=== PATIENT | male | born 1985 | race African-American/Black ===

== ENCOUNTER 2023-04-04 09:32 | Inpatient (IN) | payer OTHER ==
[~2023-04-04] VITALS: Ht 180.3 cm; Wt 113.4 kg
[2023-04-04] VITALS (34 sets, daily range): BP systolic 134–200; BP diastolic 86–151; PULSE 86–106; RESP 18–40; TEMP 97.7–98.5; O2SAT 96
[2023-04-04 09:58] LABS: BASOPHILS % 0.8 % (0.0-2.0); EOSINOPHILS % 1.4 % (0.0-5.0); HEMATOCRIT. 35.2 % (42.0-52.0); HEMOGLOBIN. 11.6 g/dL (14.0-18.0); LYMPHOCYTES % 20.6 % (20.0-50.0); MEAN CORPUSCULAR HGB CONC 32.9 g/dL (31.0-37.0); MEAN CORPUSCULAR VOLUME 85.1 fL (80.0-94.0); MEAN PLATELET VOLUME 7.4 fl (7.4-10.4); MONOCYTES % 6.6 % (2.0-8.0); NEUTROPHILS % 70.6 % (40.0-76.0); PLATELET 323 x1000/uL (130-400); RED BLOOD CELL COUNT 4.14 mill/uL (4.7-6.1); RED CELL DISTRIBUTION WIDTH 20.5 % (11.6-14.6); WHITE BLOOD COUNT 11.1 x1000/uL (4.5-11.0)
[2023-04-04 10:07] LABS: CHLORIDE 112 mEq/L (98-107); INDEX HEMOLYSI 1 (1-3); INDEX ICTERIC 1 (1-4); INDEX LIPEMIC 1 (1-3); POTASSIUM 3.7 mEq/L (3.5-5.1); SODIUM 141 mEq/L (136-145)
[2023-04-04 10:27] LABS: ALANINE AMINOTRANSFERASE 45 IU/L (13-61); ALBUMIN 3.1 g/dL (3.4-5.0); ASPARTATE AMINOTRANSFERASE 24 IU/L (15-37); BILIRUBIN TOTAL 1.4 mg/dL (0.1-1.0); CARBON DIOXIDE 20 mEq/L (21-32); CREATININE 1.1 mg/dL (0.6-1.3); GLUCOSE 111 mg/dL (70-105); NT PRO B-TYPE NATRIURETIC PEP 13787 pg/mL (5-125); PROTEIN TOTAL 7.2 g/dL (6.0-8.3); UREA NITROGEN BLOOD 19 mg/dL (7-21)
[2023-04-04] MEDS ORDERED: HYDRALAZINE 20MG/ML VIAL IV ONE (10:45)
[2023-04-04 10:52] LABS: TROPONIN I HIGH SENSITIVITY 108 ng/L (<78)
[2023-04-04] MEDS ORDERED: ENOXAPARIN 80MG/0.8ML SYR SUBCUT ONE (11:00)
[2023-04-04] MEDS ORDERED: NITROGLYCERIN 50MG PREMIX 250 ML IV ONE (13:15)
[2023-04-04] MEDS: NITROGLYCERIN 50 MG PREMIX 250 ML IV PRN (13:25)
[2023-04-04] MEDS ORDERED: FUROSEMIDE 40MG/4ML VIAL IVP NR (13:30)
[2023-04-04] MEDS: AMLODIPINE 5MG TABLET PO SCH (13:49)
[2023-04-04] MEDS: CARVEDILOL 12.5MG TABLET PO SCH ×2 (13:58→20:51)
[2023-04-04] MEDS: SPIRONOLACTONE 25MG TABLET PO SCH (14:01)
[2023-04-04] MEDS: METHYLPREDNISOLONE SOD SUCC 40MG/ML (ACT-O-VIAL) IV SCH ×2 (14:06→20:51)
[2023-04-04] MEDS ORDERED: ONDANSETRON HCL 4MG/2ML INJ IV PRN (15:30)
[2023-04-04] MEDS ORDERED: IPRATROPIUM/ALBUTEROL 0.5-3(2.5)MG/3ML NEB HHN PRN (15:30)
[2023-04-04 15:50] LABS: BG BASE EXCESS -1.8 mmol/L (-2.0-2.0); BG CARBOXYHEMOGLOBIN 1.5 % (0.5-1.5); BG DEOXYHEMOGLOBIN 6.2 % (0.0-5.0); BG FRACTION INSPIRED OXYGEN 32; BG HCO3 ACT 21.2 mmol/L (22.0-26.0); BG METHEMOGLOBIN 0.2 % (0.0-1.5); BG OXYGEN SATURATION 93.7 % (92.0-98.5); BG OXYHEMOGLOBIN 92.1 % (94.0-97.0); BG PCO2 31.1 mmHg (35.0-45.0); BG PH 7.451 (7.350-7.450); BG PO2 71.1 mmHg (75.0-100.0); BG SAMPLE SITE LEFT BRACHIAL; BG TOTAL HEMOGLOBIN 13.7 g/dL (12.0-18.0); BG VENT MODE NASAL CANNULA
[2023-04-04] MEDS ORDERED: DEXTROSE 50% WATER 50ML SYRINGE IV PRN (19:15)
[2023-04-04] MEDS: ACETAMINOPHEN 325MG TABLET PO PRN (20:50)
[2023-04-04] MEDS: INSULIN LISPRO (LOW DOSE) 100 UNITS/ML SUBCUT SCH (21:00)
[2023-04-04] MEDS: BLOOD SUGAR DIAGNOSTIC STRIP TEST SCH (21:00)
[2023-04-04] MEDS: ENOXAPARIN 30MG/0.3ML SYR SUBCUT SCH (22:08)
[2023-04-04 23:41] LABS: CREATINE KINASE MB FRACTION 2.7 ng/mL (0.5-3.6)
[2023-04-05] VITALS (82 sets, daily range): BP systolic 118–186; BP diastolic 65–128; PULSE 70–116; RESP 11–43; TEMP 97.9–98.1
[2023-04-05] MEDS: MIRTAZAPINE 15MG TABLET PO SCH ×2 (00:36→20:10)
[2023-04-05] MEDS: NITROGLYCERIN 50 MG PREMIX 250 ML IV PRN ×4 (00:41→18:05)
[2023-04-05 06:02] LABS: CREATINE KINASE MB FRACTION 2.6 ng/mL (0.5-3.6)
[2023-04-05] MEDS: BLOOD SUGAR DIAGNOSTIC STRIP TEST SCH ×4 (07:50→21:00)
[2023-04-05] MEDS: INSULIN LISPRO (LOW DOSE) 100 UNITS/ML SUBCUT SCH ×4 (08:20→21:00)
[2023-04-05] MEDS: AMLODIPINE 5MG TABLET PO SCH (08:31)
[2023-04-05] MEDS: SPIRONOLACTONE 25MG TABLET PO SCH (08:31)
[2023-04-05] MEDS: METHYLPREDNISOLONE SOD SUCC 40MG/ML (ACT-O-VIAL) IV SCH ×2 (08:31→17:00)
[2023-04-05] MEDS: CARVEDILOL 12.5MG TABLET PO SCH ×2 (08:32→20:10)
[2023-04-05] MEDS: ENOXAPARIN 30MG/0.3ML SYR SUBCUT SCH ×2 (08:32→20:11)
[2023-04-05] MEDS ORDERED: HYDRALAZINE 20MG/ML VIAL IV PRN (11:15)
[2023-04-05 12:17] LABS: HEMATOCRIT. 33.3 % (42.0-52.0); HEMOGLOBIN. 10.9 g/dL (14.0-18.0); MEAN CORPUSCULAR HEMOGLOBIN 27.3 pg (28.0-32.0); MEAN CORPUSCULAR HGB CONC 32.6 g/dL (31.0-37.0); MEAN CORPUSCULAR VOLUME 83.8 fL (80.0-94.0); MEAN PLATELET VOLUME 7.8 fl (7.4-10.4); PLATELET 348 x1000/uL (130-400); RED BLOOD CELL COUNT 3.98 mill/uL (4.7-6.1); RED CELL DISTRIBUTION WIDTH 19.5 % (11.6-14.6); WHITE BLOOD COUNT 16.7 x1000/uL (4.5-11.0)
[2023-04-05 12:21] LABS: DIFFERENTIAL COMMENT 1
[2023-04-05] MEDS: HYDRALAZINE HCL 50MG TABLET PO SCH ×2 (13:28→22:00)
[2023-04-05 14:06] LABS: ANISOCYTOSIS 2+; PLATELET ESTIMATE NORMAL
[2023-04-05 17:26] LABS: CHLORIDE 110 mEq/L (98-107); INDEX HEMOLYSI 1 (1-3); INDEX ICTERIC 1 (1-4); INDEX LIPEMIC 1 (1-3); POTASSIUM 4.3 mEq/L (3.5-5.1); SODIUM 140 mEq/L (136-145)
[2023-04-05 17:48] LABS: ALANINE AMINOTRANSFERASE 57 IU/L (13-61); ALBUMIN 2.8 g/dL (3.4-5.0); ASPARTATE AMINOTRANSFERASE 31 IU/L (15-37); BILIRUBIN TOTAL 1.2 mg/dL (0.1-1.0); CARBON DIOXIDE 22 mEq/L (21-32); CREATININE 0.9 mg/dL (0.6-1.3); GLUCOSE 147 mg/dL (70-105); UREA NITROGEN BLOOD 15 mg/dL (7-21)
[2023-04-05 20:59] LABS: CLARITY URINE CLEAR (CLEAR); COLOR URINE DARK YELLOW (YELLOW); GLUCOSE URINE NEGATIVE (NEGATIVE); KETONES URINE NEGATIVE (NEGATIVE); LEUKOCYTE ESTERASE URINE NEGATIVE (NEGATIVE); NITRITE URINE NEGATIVE (NEGATIVE); OCCULT BLOOD URINE NEGATIVE (NEGATIVE); PH URINE 5.5 (4.5-8.0); PROTEIN URINE 2+ (NEGATIVE); SPECIFIC GRAVITY URINE 1.028 (1.005-1.030)
[2023-04-05 21:01] LABS: RBC URINE 0-2 /hpf (0-2); YEAST URINE NONE SEEN
[2023-04-05 21:20] LABS: *AMPHETAMINES SCREEN URINE NEGATIVE (NEGATIVE); *BARBITURATES SCREEN URINE NEGATIVE (NEGATIVE); *BENZODIAZEPINES SCREEN URINE NEGATIVE (NEGATIVE); *COCAINE SCREEN URINE NEGATIVE (NEGATIVE); CANNABINOID URINE SCREEN NEGATIVE (NEGATIVE); ECSTASY MDMA SCREEN URINE NEGATIVE (NEGATIVE); OPIATES URINE SCREEN NEGATIVE (NEGATIVE); PHENCYCLIDINE URINE SCREEN NEGATIVE (NEGATIVE)
[2023-04-05 21:25] LABS: BACTERIA URINE 1+; SQUAMOUS EPITHELIAL CELL URINE RARE /lpf (RARE/1+); WBC URINE 0-2 /hpf (0-2)
[2023-04-06] VITALS (45 sets, daily range): BP systolic 111–188; BP diastolic 77–118; PULSE 86–114; RESP 17–38; TEMP 97.7–98.1
[2023-04-06] MEDS ORDERED: CLONIDINE 0.2MG TABLET PO PRN (02:00)
[2023-04-06] MEDS: ACETAMINOPHEN 325MG TABLET PO PRN (06:22)
[2023-04-06] MEDS: HYDRALAZINE HCL 50MG TABLET PO SCH (06:22)
[2023-04-06] MEDS: BLOOD SUGAR DIAGNOSTIC STRIP TEST SCH (07:50)
[2023-04-06] MEDS: INSULIN LISPRO (LOW DOSE) 100 UNITS/ML SUBCUT SCH (08:20)
[2023-04-06] MEDS: METHYLPREDNISOLONE SOD SUCC 40MG/ML (ACT-O-VIAL) IV SCH ×2 (09:06→17:31)
[2023-04-06] MEDS: ENOXAPARIN 30MG/0.3ML SYR SUBCUT SCH ×2 (09:06→21:00)
[2023-04-06] MEDS: CARVEDILOL 12.5MG TABLET PO SCH ×2 (09:07→21:19)
[2023-04-06] MEDS: AMLODIPINE 10MG TABLET PO SCH (09:07)
[2023-04-06] MEDS: SPIRONOLACTONE 25MG TABLET PO SCH (09:07)
[2023-04-06] MEDS: FUROSEMIDE 40MG/4ML VIAL IVP SCH ×2 (10:32→17:31)
[2023-04-06] MEDS: ISOSORBIDE MONONITRATE 30MG TABLET SR 24HR PO SCH (13:25)
[2023-04-06] MEDS: HYDRALAZINE HCL 100MG TABLET PO SCH ×2 (13:25→23:16)
[2023-04-06] MEDS ORDERED: IOHEXOL-350 100 ML BOTTLE ONE (14:10)
[2023-04-06] MEDS: MIRTAZAPINE 15MG TABLET PO SCH (21:19)
[2023-04-06] MEDS ORDERED: HYDRALAZINE 10 MG in SODIUM CHLORIDE 0.9% 49.5 ML IV PRN (23:45)
[2023-04-07] VITALS (7 sets, daily range): BP systolic 128–175; BP diastolic 69–111; PULSE 80–102; RESP 17–24; TEMP 97.5–98.2
[2023-04-07] MEDS: FUROSEMIDE 40MG/4ML VIAL IVP SCH ×2 (05:32→16:59)
[2023-04-07] MEDS: HYDRALAZINE HCL 100MG TABLET PO SCH ×3 (05:33→21:51)
[2023-04-07] MEDS: CEFTRIAXONE 1,000 MG in DEXTROSE 5% WATER 50 ML IV SCH (05:34)
[2023-04-07] MEDS: ISOSORBIDE MONONITRATE 30MG TABLET SR 24HR PO SCH (10:32)
[2023-04-07] MEDS: METHYLPREDNISOLONE SOD SUCC 40MG/ML (ACT-O-VIAL) IV SCH ×2 (10:34→16:59)
[2023-04-07] MEDS: SPIRONOLACTONE 25MG TABLET PO SCH (10:34)
[2023-04-07] MEDS: CARVEDILOL 12.5MG TABLET PO SCH ×2 (10:34→21:52)
[2023-04-07] MEDS: AMLODIPINE 10MG TABLET PO SCH (10:34)
[2023-04-07] MEDS: ENOXAPARIN 30MG/0.3ML SYR SUBCUT SCH ×2 (10:35→21:51)
[2023-04-07 12:17] LABS: BASOPHILS % 0.1 % (0.0-2.0); HEMATOCRIT. 37.2 % (42.0-52.0); HEMOGLOBIN. 12.3 g/dL (14.0-18.0); LYMPHOCYTES % 8.1 % (20.0-50.0); MEAN CORPUSCULAR HEMOGLOBIN 28.4 pg (28.0-32.0); MEAN CORPUSCULAR VOLUME 86.3 fL (80.0-94.0); MEAN PLATELET VOLUME 7.9 fl (7.4-10.4); MONOCYTES % 8.5 % (2.0-8.0); NEUTROPHILS % 83.3 % (40.0-76.0); PLATELET 419 x1000/uL (130-400); RED BLOOD CELL COUNT 4.32 mill/uL (4.7-6.1); RED CELL DISTRIBUTION WIDTH 19.6 % (11.6-14.6)
[2023-04-07 12:45] LABS: CHLORIDE 102 mEq/L (98-107); POTASSIUM 4.2 mEq/L (3.5-5.1); SODIUM 138 mEq/L (136-145)
[2023-04-07 12:54] LABS: ALANINE AMINOTRANSFERASE 44 IU/L (13-61); ALBUMIN 2.9 g/dL (3.4-5.0); ASPARTATE AMINOTRANSFERASE 16 IU/L (15-37); BILIRUBIN DIRECT 0.1 mg/dL (0.0-0.2); BILIRUBIN TOTAL 0.4 mg/dL (0.1-1.0); CALCIUM 8.9 mg/dL (8.5-10.1); CARBON DIOXIDE 29 mEq/L (21-32); CREATININE 1.1 mg/dL (0.6-1.3); GLUCOSE 126 mg/dL (70-105); PROTEIN TOTAL 7.5 g/dL (6.0-8.3); UREA NITROGEN BLOOD 21 mg/dL (7-21)
[2023-04-07 14:42] LABS: BG BASE EXCESS 3.9 mmol/L (-2.0-2.0); BG CARBOXYHEMOGLOBIN 1.3 % (0.5-1.5); BG DEOXYHEMOGLOBIN 13.8 % (0.0-5.0); BG FRACTION INSPIRED OXYGEN 21; BG HCO3 ACT 29.8 mmol/L (22.0-26.0); BG METHEMOGLOBIN 0.3 % (0.0-1.5); BG OXYHEMOGLOBIN 84.6 % (94.0-97.0); BG PCO2 49.8 mmHg (35.0-45.0); BG PH 7.395 (7.350-7.450); BG PO2 53.2 mmHg (75.0-100.0); BG SAMPLE SITE LEFT BRACHIAL; BG VENT MODE ROOM AIR
[2023-04-07] MEDS: MIRTAZAPINE 15MG TABLET PO SCH (21:51)
[2023-04-08] VITALS: BP 149/84; PULSE 80; RESP 17; TEMP 97.6
[2023-04-08] MEDS: MINOXIDIL 2.5MG TABLET PO SCH ×2 (01:00→08:21)
[2023-04-08 04:00] VITALS: BP 160/114; PULSE 86; RESP 20; TEMP 97.4
[2023-04-08] MEDS: FUROSEMIDE 40MG/4ML VIAL IVP SCH ×2 (05:47→18:00)
[2023-04-08] MEDS: HYDRALAZINE HCL 100MG TABLET PO SCH ×2 (05:47→14:23)
[2023-04-08] MEDS: CEFTRIAXONE 1,000 MG in DEXTROSE 5% WATER 50 ML IV SCH (05:47)
[2023-04-08 08:00] VITALS: BP 164/107; PULSE 76; RESP 20; TEMP 97.8
[2023-04-08] MEDS: ISOSORBIDE MONONITRATE 30MG TABLET SR 24HR PO SCH (08:11)
[2023-04-08] MEDS: CARVEDILOL 12.5MG TABLET PO SCH (08:11)
[2023-04-08] MEDS: ENOXAPARIN 30MG/0.3ML SYR SUBCUT SCH (08:12)
[2023-04-08] MEDS: AMLODIPINE 10MG TABLET PO SCH (08:12)
[2023-04-08] MEDS: SPIRONOLACTONE 25MG TABLET PO SCH (08:12)
[2023-04-08] MEDS ORDERED: PREDNISONE 20MG TABLET PO SCH (09:00)
[2023-04-08 11:35] LABS: BASOPHILS % 0.3 % (0.0-2.0); EOSINOPHILS % 0.7 % (0.0-5.0); HEMATOCRIT. 37.4 % (42.0-52.0); HEMOGLOBIN. 12.4 g/dL (14.0-18.0); LYMPHOCYTES % 10.9 % (20.0-50.0); MEAN CORPUSCULAR HEMOGLOBIN 28.1 pg (28.0-32.0); MEAN CORPUSCULAR HGB CONC 33.1 g/dL (31.0-37.0); MEAN CORPUSCULAR VOLUME 84.9 fL (80.0-94.0); MEAN PLATELET VOLUME 7.8 fl (7.4-10.4); MONOCYTES % 5.6 % (2.0-8.0); NEUTROPHILS % 82.5 % (40.0-76.0); PLATELET 422 x1000/uL (130-400); RED CELL DISTRIBUTION WIDTH 19.2 % (11.6-14.6); WHITE BLOOD COUNT 13.9 x1000/uL (4.5-11.0)
[2023-04-08 12:00] VITALS: BP 118/82; PULSE 71; RESP 22; TEMP 98
[2023-04-08 16:00] VITALS: BP 160/88; PULSE 84; RESP 20; TEMP 98.1
[2023-04-08] MEDS ORDERED: HYDRALAZINE 20MG/ML VIAL IV PRN (16:00)
[2023-04-08 16:14] LABS: CHLORIDE 99 mEq/L (98-107); INDEX HEMOLYSI 1 (1-3); INDEX ICTERIC 1 (1-4); INDEX LIPEMIC 1 (1-3); POTASSIUM 4.4 mEq/L (3.5-5.1); SODIUM 135 mEq/L (136-145)
[2023-04-08 16:53] LABS: CALCIUM 8.3 mg/dL (8.5-10.1); CARBON DIOXIDE 31 mEq/L (21-32); CREATININE 1.2 mg/dL (0.6-1.3); GLUCOSE 141 mg/dL (70-105); UREA NITROGEN BLOOD 31 mg/dL (7-21)
[2023-04-08 17:51] VITALS: BP 155/84; PULSE 78; TEMP 98; O2SAT 96
[2023-04-08] MEDS ORDERED: MINOXIDIL 2.5MG TABLET PO SCH (21:00)
== END 2023-04-08 20:30 | disposition home or self-care (01) | DRG 194 ==
LOC: ER 10:34 → CVICU 11:20 → EDBEDREQTM 11:22 → EDBEDREQ 11:22 → EDBEDREQSVC 13:03 → 8WST 04-06 23:34
PROVIDERS: ADMIT Internal Medicine; ATTEND Internal Medicine
DX: I11.0 Hypertensive heart disease with heart failure (principal); J96.01 Acute respiratory failure with hypoxia; I21.4 Non-ST elevation (NSTEMI) myocardial infarction; I50.43 Acute on chronic combined systolic (congestive) and diastolic (congestive) heart failure; E66.9 Obesity, unspecified; I16.1 Hypertensive emergency; D64.9 Anemia, unspecified; D72.829 Elevated white blood cell count, unspecified; J45.901 Unspecified asthma with (acute) exacerbation; Z91.199 Patient's noncompliance with other medical treatment and regimen due to unspecified reason; Z68.34 Body mass index [BMI] 34.0-34.9, adult
CPT/HCPCS: 36415; 36600; 71045; 71275; 80048; 80053; 80061; 80076; 80305; 81003; 82375; 82550; 82553; 82805; 82962; 83036; 83880; 84484; 85025; 85379; 87426; 93005; 93306; 93970; 94640; 97162; 99291; C1893; C9803; J0360; J0696; J1650; J1940; J2405; J2920; J3490; J7060; J7512; Q9967